=== PATIENT | male | born 1945 | race Caucasian/White ===

== ENCOUNTER → 2016-10-23 | Outpatient (CLI) | payer MEDICARE, OTHER | END | disposition home or self-care (01) | LOC: GMAB 15:30 | PROVIDERS: ATTEND Family Medicine | DX: D50.0 Iron deficiency anemia secondary to blood loss (chronic) (principal) ==

== ENCOUNTER → 2017-02-02 | Outpatient (CLI) | payer MEDICARE, OTHER | END | disposition home or self-care (01) | LOC: GMAB 10:41 | PROVIDERS: ATTEND Family Medicine | DX: N40.1 Benign prostatic hyperplasia with lower urinary tract symptoms (principal) ==

== ENCOUNTER → 2017-06-18 | Outpatient (CLI) | payer MEDICARE, OTHER | END | disposition home or self-care (01) | LOC: GMAB 11:34 | PROVIDERS: ATTEND Family Medicine | DX: Z12.5 Encounter for screening for malignant neoplasm of prostate (principal); I10 Essential (primary) hypertension | CPT/HCPCS: 84443; G0103 ==

== ENCOUNTER → 2018-09-17 | Outpatient (CLI) | payer MEDICARE, OTHER | LOC: GMAE 10:29 | PROVIDERS: ATTEND Family Medicine | DX: I10 Essential (primary) hypertension (principal) ==

== ENCOUNTER → 2018-09-29 | Outpatient (CLI) | payer MEDICARE, OTHER ==
--- NOTE | 2018-09-30 10:33 | US ---
US THYROID CLINICAL STATEMENT: NONTOXIC SINGLE THYROID NODULE. COMPARISON: Ultrasound of the aorta on the same visit. FINDINGS: Size right thyroid lobe: 3.8 x 1.5 x 1.5 cm Size left thyroid lobe: 3.6 x 1.7 x 1.3 cm Size isthmus: 0.2 cm Estimated total number of nodules greater than or equal to 1 cm: 0. The gland is heterogeneous bilaterally and the isthmus. Nodule 1: Size: 0.7 x 0.7 x 0.4 cm Location: Left Mid Composition: cystic or completely cystic: 0 points Echogenicity: anechoic: 0 points Shape: wider than tall: 0 points Margins: smooth: 0 points Echogenic foci: none: 0 points ACR Total Points: 0; ACR TI-RADS risk category: TR1 - benign nodule Soft tissue shows no dominant solid mass or distinct cyst. No parenchymal edema or large calcifications. No overlying skin changes. No abnormal vascularity. IMPRESSION: 1. Nodule 1: ACR TI-RADS 2017 Category TR1. Consistent with a cyst. Recommend: No further follow-up.. Recommendations based upon [facility] Best [facility] recommendations and ACR TI-RADS 2017 guidelines. Please see below*. 2. Soft tissue surrounding the thyroid gland is unremarkable. *ACR TI-RADS 2017 Recommendations: TR1: No FNA or follow up TR2: No FNA or follow up TR3: FNA if >/= 2.5 cm, follow up if 1.5 - 2.4 cm in 1, 3, and 5 years TR4: FNA if >/= 1.5 cm, follow up if 1.0 - 1.4 cm in 1, 2, 3, and 5 years TR5: FNA if >/= 1.0 cm, follow up if 0.5 - 0.9 cm every year for 5 years ACR TI-RADS recommends that no more than two nodules with the highest ACR TI-RADS total point should be biopsied and no more than four nodules should be followed. Electronically signed by: Efren Lofton MD 09/30/2018 10:31 AM [facility]
--- NOTE | 2018-09-30 10:56 | US ---
EXAM DESCRIPTION: Aorta: Ultrasound. CLINICAL HISTORY: SCREENING FOR OTHER SPECIFIED CONDITION COMPARISON: Ultrasound of the thyroid gland the same visit. TECHNIQUE: Transcutaneous scanning: Two-dimensional and Doppler modes. FINDINGS: Abdominal aorta diameter (cm) Proximal: 1.7. Mid: 1.6. Distal: 1.7. Common Iliac diameter (mm) Right: 9.4. Left: 10.3. Other: Minimal atherosclerosis of the aortic intima.. IMPRESSION: No abdominal aortic aneurysm. Minimal atherosclerotic changes. Electronically signed by: Efren Lofton MD 09/30/2018 10:55 AM [facility]
== END ==
LOC: US 08:53
PROVIDERS: ATTEND Family Medicine
DX: Z13.89 Encounter for screening for other disorder (principal); E04.1 Nontoxic single thyroid nodule

== ENCOUNTER → 2018-10-19 | Outpatient (CLI) | payer MEDICARE, OTHER ==
--- NOTE | 2018-10-19 14:30 | CT ---
Procedure: CT LUNG SCREENING Exam Date: 10/19/2018. Ordering Provider: Scott Londono Clinical Indication: TOBACCO USE This patient meets eligibility criteria for low-dose CT lung cancer screening. Comparison: Abdominal CT scan 03/08/2014. Technique: Using a multislice scanner, sequential helical axial imaging was obtained in the thorax, 2.5 mm thickness, 2.5 mm separation, from the level of the thoracic inlet through the lung bases without IV contrast. A low dose protocol was utilized: CTDI: 1.76 mGy. 120. kVp. 45 mA. 2D sagittal and coronal reconstructed images, 6.0 mm thickness, were obtained. This exam was performed according to our departmental dose optimization program which includes use of automated exposure control, adjustment of the mA and/or kV according to patient size and/or use of iterative reconstruction technique. Nodule measurements under 10 mm are given as mean value of 3 axes diameters. FINDINGS: Lungs and large airways: 7 mm circumscribed and lobulated solid nodule in the superior segment of the right lower lobe on axial series image 82. 3 mm partially calcified nodule in the anterior right middle lobe abutting the horizontal fissure on axial image 81. Focal scarring versus 4 mm groundglass nodule in the base of the right upper lobe on axial image 70. 4 mm oblong nodule abutting the horizontal fissure in the base of the anterior right upper lobe on axial image 78. 15 mm solid nodule with somewhat irregular and lobulated margins, on axial image 86, sagittal images 45, and coronal image 51. This is slightly superior and lateral to the right hilum associated with the mid right major fissure. Focal pleural scarring versus 7 mm nodule in the lateral recess of the left lower lobe abutting the pleura on axial images 103 and 102. Bilateral slightly dilated blebs in a centrilobular distribution. Minimal disc pleural parenchymal scarring in the inferior lingula. Pleura and space: Bilateral focal thickening abutting the upper lobes. Bilateral bronchial thickening abutting the lower lobes, slightly more on the right. Focal thickening abutting the lateral right hemidiaphragmatic pleura. No effusion or pneumothorax. Mediastinum and suzanne: evaluation limited by low dose technique and lack of IV contrast. No large soft tissue masses or lymph nodes. Calcified distal trachea and proximal bronchi cartilage. Moderate size gastric hiatal hernia. Heart and great vessels: Atherosclerotic calcifications coronary artery with possible stents. Also calcifications aortic arch and descending thoracic aorta. Chest wall, lower neck, axillae: Evaluation also limited by same factors as described above. Normal sized axillary lymph nodes. Upper abdomen: No free air or fluid in the included peritoneal space. Included spleen and adrenal glands normal size and density. Atherosclerotic calcifications in the aorta and branching vessels. Moderate size gastric hernia. Osseous structures: Evaluation limited by low dose MIP technique. Dorsal column stimulator electrodes upper margin T7-T8 level. Thoracic kyphosis. No lytic or blastic lesions. IMPRESSION: 1. Approximately 14 mm nodule in the lateral inferior right hilum in the right middle lobe abutting the right major fissure.. Margins are somewhat irregular and lobulated. Differential includes abnormal parenchymal nodule, focal perifissural nodule or focal scarring. Numerous other findings of nodules or pleural thickening in the lungs bilaterally, predominantly right middle lobe and right upper lobe. [facility] Best Practice guidelines:. Please see below for Lung RADS category and FOLLOW-UP.* *Lung RADS category Category 4a - Findings for which additional diagnostic testing and/or tissue sampling is recommended (5 - 15% malignancy probability). Nodules: Solid nodule(s) 8mm to less than 15mm at baseline, new 6mm to under 8mm solid nodule, or growing less than 8mm nodule. Part solid nodule measuring more than 6mm in total with a solid component 6mm to less than 8mm, or with a new or growing less than 4mm solid component. Follow-up: Please return for a Low Dose Chest CT in 3 months for re-evaluation. PET/CT may be used when there is an 8mm or greater solid component. Electronically signed by: Efren Lofton MD 10/19/2018 2:28 PM [facility]
== END ==
LOC: CT 09:00
PROVIDERS: ATTEND Family Medicine
DX: Z87.891 Personal history of nicotine dependence (principal); R91.1 Solitary pulmonary nodule

== ENCOUNTER → 2019-01-13 | Outpatient (CLI) | payer MEDICARE, OTHER ==
--- NOTE | 2019-01-13 10:17 | CT ---
EXAM DESCRIPTION: Chest w/o Contrast CLINICAL HISTORY: 73 years, Male, LUNG NODULE COMPARISON: Previous CT of the lungs October 19, 2018 TECHNIQUE: Thin-section noncontrast axial CT images are obtained according to our protocol. Reconstructed MPR images are created and reviewed as well. FINDINGS: Lungs: Small pulmonary lymph node along the minor fissure measures 4 mm on the present study unchanged. A nodule in the right lower lobe near the junction of the superior segment and lateral basal segment measures 6 mm compared to 7 mm on previous study. Previous exam showed nodular density along the right major fissure which measured 9 mm and this appears to have resolved, with only linear scar remaining (axial images 76 through 80). Minimal scarring in the right middle lobe and lingula. Nodule in the lateral basal segment left lower lobe measures 6 mm unchanged. With multiple pulmonary nodules in the 4-6 mm size range, follow-up CT in six months is recommended. Mediastinum: Lymph nodes are normal in size. Moderate-sized hiatal hernia. Normal vascular contours. Heart size is normal with no pericardial effusion. There is extensive coronary arterial calcification. Chest wall/axilla: No mass or adenopathy. Lower neck/supraclavicular: No mass or adenopathy. Upper abdomen: Unremarkable upper abdominal viscera. Coronal and sagittal reformatted images confirm the findings. IMPRESSION: Interval resolution of right middle lobe nodule. Other small 4 to 6 mm nodules in the lungs are unchanged. Follow-up chest CT in six months is recommended. This exam was performed according to our departmental dose-optimization program, which includes automated exposure control, adjustment of the mA and/or kV according to patient size and/or use of iterative reconstruction technique. Total DLP equals 425.63 mGycm. Electronically signed by: Kelvin Lockwood MD 01/13/2019 10:15 AM CDT
== END ==
LOC: CT 08:00
PROVIDERS: ATTEND Family Medicine
DX: R91.8 Other nonspecific abnormal finding of lung field (principal)

== ENCOUNTER → 2019-07-22 | Outpatient (CLI) | payer MEDICARE, OTHER ==
--- NOTE | 2019-07-22 14:26 | CT ---
EXAM DESCRIPTION: Chest w/o Contrast : Computed Tomography. CLINICAL HISTORY: 74 years Male LUNG NODULE. Lung RADS 3 prior examination with six-month follow-up. COMPARISON: Noncontrast chest CT scan January 2019. Low-dose CT lung cancer screening examination October 2018 - lung RADS 4A. TECHNIQUE: Using a multislice scanner, sequential helical axial imaging was obtained in the thorax, 2.5 mm thickness, 2.5 mm separation, from the level of the thoracic inlet through the lung bases without IV contrast. A low dose protocol was utilized for BMI less than 30: BMI: 26.3. CTDI: 1.76 mGy. 120. kVp. 45 mA. DLP 64.2 mGy-centimeters. 2D sagittal and coronal reconstructed images, 6.0 mm thickness, were obtained. This exam was performed according to our departmental dose optimization program which includes use of automated exposure control, adjustment of the mA and/or kV according to patient size and/or use of iterative reconstruction technique. Nodule measurements under 10 mm are given as mean value of 3 axes diameters. FINDINGS: Lungs and large airways: Pleural parenchymal scarring in the right middle lobe with no nodule. Stable anteromedial pleural thickening. Bibasilar posterior dependent atelectasis. Minimal emphysematous changes bilateral upper lobes. Solid subpleural 5.2 mm nodule right posterolateral lower lobe on axial image 2/84 is stable. 4.3 mm nodule just posterior to the horizontal fissure in the right middle lobe on axial image 2/76 is stable. Perifissural nodule associated with the horizontal fissure medially on image 2/74 is stable. Perifissural nodules less than 4 mm thickness stable on the mid left major fissure on image 2/65 no new abnormal nodules or masses. No new focal infiltrates.. Pleural spaces: Bilateral focal and diffuse regions of thickening stable. Mediastinum and Lilly: Evaluation limited due to lack of IV contrast small lymph nodes are unchanged. No dominant solid masses. Great vessels and Heart: Evaluation limited due to lack of IV contrast. Given noted are coronary artery calcifications and atherosclerotic calcifications in the aortic arch and descending thoracic aorta and proximal brachiocephalic vessels. Soft tissues of neck base, axillae, and chest wall: Evaluation limited due to lack of IV contrast. Bilateral axillary lymph nodes stable. Upper abdomen: No free air or free fluid fluid in the included abdomen. Mild to moderate size gastric hiatal hernia. Other visualized organs are unremarkable. Osseous structures: Thoracic spondylosis, minimal manubriosternal arthrosis again seen. No lytic or blastic lesions. IMPRESSION: 1. Minimal emphysematous changes in the lungs. Parenchymal and perifissural nodules are stable. No new nodules and no new masses. No focal infiltrates. [facility] Best Practice Recommendations: please see below for Lung RADS category and FOLLOW-UP.* *Lung RADS category CATEGORY 2- Nodules with a very low likelihood (less than 1%) of becoming a clinically active cancer due to size or lack of growth. Nodules: Perifissural nodule(s) < 10 mm. (526mm3). Solid or part solid nodule(s) less than 6mm (113.1 mm3), new solid nodule less than 4mm (33.5 mm3). Ground glass nodule(s) less than 30mm (24278.2 mm3) or unchanged or slow growing ground glass nodule 30mm or greater. Cat 3 or 4 nodule unchanged for 3 or more months. FOLLOW-UP: Continue annual screening with a Low Dose Chest CT in 12 months for re-evaluation. Electronically signed by: Efren Lofton MD 07/22/2019 2:25 PM [employer]
== END ==
LOC: CT 08:00
PROVIDERS: ATTEND Family Medicine
DX: Z87.891 Personal history of nicotine dependence (principal); R91.1 Solitary pulmonary nodule; J43.9 Emphysema, unspecified

== ENCOUNTER 2019-10-10 05:41 | Day surgery (SDC) | payer MEDICARE, OTHER ==
[2019-10-10] MEDS ORDERED: TROP 1%/CYCLOPEN 1%/PHENYL 2% DROPS ONE (06:28)
[2019-10-10] MEDS ORDERED: TOBRAMYCIN SULF 0.3 % OPHT SOL 1 DROP OPHTH ONE (08:00)
[2019-10-10] MEDS ORDERED: DEXAMETHASONE 0.1% OPHTH SOL 1 DROP LEFT_EYE ONE (08:31)
[2019-10-10] MEDS ORDERED: BRIMONIDINE 0.2% OPHTH DROPS LEFT_EYE ONE (08:31)
[2019-10-10] MEDS ORDERED: TOBRAMYCIN-DEXAMETH OPHTH SOL 1 DROP LEFT_EYE ONE (08:31)
[2019-10-10] MEDS ORDERED: MOXIFLOXACIN HCL (OPHTH) 1 DROP DROPS BOTH_EYES ONE (08:31)
[2019-10-10] MEDS ORDERED: LIDOCAINE 1% 2 ML VIAL INJ ONE (08:31)
[2019-10-10] MEDS ORDERED: PROPARACAINE 0.5% OPHTH SOL 15 ML BTTL LEFT_EYE ONE (08:31)
[2019-10-10] MEDS ORDERED: MIDAZOLAM INJ 2 MG/2 ML VIAL ONE (08:41)
== END 2019-10-10 09:50 | disposition home or self-care (01) ==
LOC: AMB 05:41
PROVIDERS: ATTEND Ophthalmology
DX: H25.12 Age-related nuclear cataract, left eye (principal)
CPT/HCPCS: 00142; 66984; J2250

== ENCOUNTER → 2019-10-12 | Outpatient (CLI) | payer MEDICARE, OTHER | LOC: GMAE 12:10 | PROVIDERS: ATTEND Family Medicine | DX: Z12.5 Encounter for screening for malignant neoplasm of prostate (principal); I10 Essential (primary) hypertension; E78.2 Mixed hyperlipidemia | CPT/HCPCS: 84443; G0103 ==

== ENCOUNTER 2019-10-24 00:42 | Day surgery (SDC) | payer MEDICARE, OTHER ==
[2019-10-24] MEDS ORDERED: MOXIFLOXACIN HCL (OPHTH) 1 DROP DROPS ONE (06:14)
[2019-10-24] MEDS ORDERED: PROPARACAINE 0.5% OPHTH SOL 15 ML BTTL ONE (06:14)
[2019-10-24] MEDS ORDERED: MIDAZOLAM INJ 2 MG/2 ML VIAL ONE (07:32)
[2019-10-24] MEDS ORDERED: PROPARACAINE 0.5% OPHTH SOL 15 ML BTTL RIGHT_EYE ONE (08:30)
[2019-10-24] MEDS ORDERED: prednisoLONE ACETATE 1% OPHTH SOL 5 ML BTTL RIGHT_EYE ONE (08:30)
[2019-10-24] MEDS ORDERED: LIDOCAINE 1% 2 ML VIAL INJ ONE (08:30)
[2019-10-24] MEDS ORDERED: BRIMONIDINE 0.2% OPHTH DROPS RIGHT_EYE ONE (08:30)
[2019-10-24] MEDS ORDERED: DEXAMETHASONE 0.1% OPHTH SOL 1 DROP OPHTH ONE (08:30)
[2019-10-24] MEDS ORDERED: TOBRAMYCIN SULF 0.3 % OPHT SOL 1 DROP RIGHT_EYE ONE (08:30)
[2019-10-24] MEDS ORDERED: LIDOCAINE 1% MPF 2 ML VIAL INJ ONE (08:30)
[2019-10-24] MEDS ORDERED: MOXIFLOXACIN HCL (OPHTH) 1 DROP DROPS RIGHT_EYE ONE (08:30)
== END 2019-10-24 09:35 | disposition home or self-care (01) ==
LOC: AMB 00:42
PROVIDERS: ATTEND Ophthalmology
DX: H25.11 Age-related nuclear cataract, right eye (principal)
CPT/HCPCS: 00142; 66984; J2250